=== PATIENT | female | born 1975 | race Caucasian/White ===

== ENCOUNTER 2022-05-25 13:51 | Outpatient (CLI) | payer OTHER, SELFPAY ==
[2022-05-25 14:26] LABS: Albumin* 4.1 g/dL (3.3-5.0)
[2022-05-25 14:27] LABS: Chloride* 105 mmol/L (96-114); Potassium* 4.3 mmol/L (3.6-5.1); Sodium* 137 mmol/L (135-149)
[2022-05-25 14:29] LABS: Aspartate Amino Transferase* 20 U/L (12-35); Bilirubin Total* 0.6 mg/dL (0.1-1.5); Blood Urea Nitrogen* 19 mg/dL (5-24); Carbon Dioxide* 24 mmol/L (20-32); Cholesterol* 197 mg/dL (90-199); Creatinine* 0.7 mg/dL (0.5-1.5); Estimated Glomerular Filt Rate 109 ml/min; Total Protein* 6.6 g/dL (6.0-8.3)
[2022-05-25 14:30] LABS: Alanine Aminotransferase* 29 U/L (4-35); Alkaline Phosphatase* 84 U/L (40-150); Calcium* 9.3 mg/dL (8.4-10.6); Glucose* 137 mg/dL (60-115); HDL Cholesterol* 59 mg/dL (>=50); LDL Cholesterol Calculated 113 mg/dL (<100); Triglycerides* 125 mg/dL (40-149)
[2022-05-25 14:59] LABS: Free T4 Free Thyroxine* 1.32 ng/dL (0.70-1.85)
[2022-05-25 22:01] LABS: Creatinine Urine 172.6 mg/dL
[2022-05-25 22:04] LABS: Microalbumin Creatinine Ratio 0 mg/g (0-30); Microalbumin Urine 1 mg/dL
== END 2022-05-25 13:52 | disposition home or self-care (01) ==
PROVIDERS: PCP Family Medicine; Visit Provider Family Medicine
DX: E11.9 Type 2 diabetes mellitus without complications (principal); E03.9 Hypothyroidism, unspecified; I10 Essential (primary) hypertension; E66.9 Obesity, unspecified; E78.5 Hyperlipidemia, unspecified
CPT/HCPCS: 80053; 80061; 82043; 82570; 84439; 84443

== ENCOUNTER 2022-11-22 08:09 | Outpatient (CLI) | payer OTHER, SELFPAY | END 2022-11-22 08:10 | disposition home or self-care (01) | LOC: NFLDREF 11-23 07:07 | PROVIDERS: PCP Family Medicine; Referring Provider Family Medicine; Visit Provider Family Medicine | DX: E03.9 Hypothyroidism, unspecified (principal); E11.69 Type 2 diabetes mellitus with other specified complication; E66.9 Obesity, unspecified; E78.5 Hyperlipidemia, unspecified; I10 Essential (primary) hypertension | CPT/HCPCS: 80053; 80061; 82043; 82570; 84443 ==

== ENCOUNTER 2022-12-08 09:50 | Outpatient (CLI) | payer OTHER, SELFPAY ==
[2022-12-08 15:11] LABS: Chlamydia DNA Amplified* NOT DETECTED (No Detected); GC DNA Amplified* NOT DETECTED (No Detected)
== END 2022-12-08 09:51 | disposition home or self-care (01) ==
PROVIDERS: PCP Family Medicine; Visit Provider Registered Nurse
DX: N92.0 Excessive and frequent menstruation with regular cycle (principal); Z11.3 Encounter for screening for infections with a predominantly sexual mode of transmission
CPT/HCPCS: 87086; 87491; 87591

== ENCOUNTER 2023-01-06 12:51 | Outpatient (CLI) | payer OTHER, SELFPAY ==
--- NOTE | 2023-01-06 13:00 | CRLHL7_ITS ---
For Patients: As a result of the Century Cures Act, medical imaging exams and procedure reports are released immediately into your electronic medical record. You may view this report before your referring provider. If you have questions, please contact your health care provider. INDICATION: EXCESSIVE AND FREQUENT MENSTRUATION COMPARISON: none TECHNIQUE: 2D fong scale and color Doppler images were acquired of the pelvis using a transabdominal and transvaginal approach. FINDINGS: Sonographic images demonstrate a normal size and smooth outer contour of the uterus. Uterus measures 9.2 cm in length by 4.4 cm in AP diameter by 5.0 cm in transverse dimension. The myometrium has a normal uniform echotexture. The endometrial lining measures 13 mm in composite thickness. The ovaries are not visualized. There are no suspicious fluid collections within the cul-de-sac. IMPRESSION: Endometrial thickness 13 millimeters. No uterine fibroid. Dictated by Cesar Christine MD @ 01/06/2023 3:31:19 PM (Electronically Signed)
== END 2023-01-06 12:52 | disposition home or self-care (01) ==
LOC: US 12:53
PROVIDERS: PCP Family Medicine; Visit Provider Registered Nurse
DX: N92.0 Excessive and frequent menstruation with regular cycle (principal); R93.89 Abnormal findings on diagnostic imaging of other specified body structures
CPT/HCPCS: 76830; 76856

== ENCOUNTER 2023-05-09 08:23 | Outpatient (CLI) | payer OTHER, SELFPAY | END 2023-05-09 08:24 | disposition home or self-care (01) | LOC: NFLDREF 14:58 | PROVIDERS: PCP Family Medicine; Referring Provider Family Medicine; Visit Provider Family Medicine | DX: E03.9 Hypothyroidism, unspecified (principal); I10 Essential (primary) hypertension; E78.5 Hyperlipidemia, unspecified; E11.69 Type 2 diabetes mellitus with other specified complication; E66.9 Obesity, unspecified; Z79.899 Other long term (current) drug therapy | CPT/HCPCS: 80053; 80061; 82043; 82570; 82607; 84439; 84443 ==

== ENCOUNTER 2023-07-07 07:51 | Outpatient (CLI) | payer OTHER, SELFPAY ==
--- NOTE | 2023-07-07 08:48 | W.ANESCHARGE ---
Anesthesia Charges Start Date/Time Anesthesia Start Date: 07/07/23 Anesthesia Start Time: 08:28 Stop Date/Time Anesthesia Stop Date: 07/07/23 Anesthesia Stop Time: 08:55
--- NOTE | 2023-07-07 08:57 | W.ANESCHARGE ---
Anesthesia Charges Start Date/Time Anesthesia Start Date: 07/07/23 Anesthesia Start Time: 08:28 Stop Date/Time Anesthesia Stop Date: 07/07/23 Anesthesia Stop Time: 08:55
== END 2023-07-07 07:52 | disposition home or self-care (01) ==
LOC: OP CLINIC 07:52
PROVIDERS: PCP Family Medicine; Visit Provider Internal Medicine
DX: Z12.11 Encounter for screening for malignant neoplasm of colon (principal); K63.5 Polyp of colon
CPT/HCPCS: 00811; 00812; 45380; 88305; J2704

== ENCOUNTER 2023-08-03 14:57 | Outpatient (CLI) | payer OTHER, SELFPAY ==
--- NOTE | 2023-08-03 15:00 | MM_ITS ---
Patient: CARLY ROJO Facility:?[facility] Patient ID:?[id number] Site [id number] ID:?[id number]. Site :?[id number] Study:?XRay-Breast Bilateral 3D W/CAD-08/03/2023 4:25:14 PM Ordering Physician:Kavita Final Report: BILATERAL SCREENING MAMMOGRAM WITH COMPUTER-AIDED DETECTION AND TOMOSYNTHESIS TECHNIQUE: CC and MLO views were obtained. These mammographic images have been obtained using full-field digital technique. These mammographic images were interpreted with the benefit of computer-aided detection. Breast Tomosynthesis was used in this interpretation. COMPARISON FILM: 09/01/21, 01/29/20, 09/29/17. FINDINGS: There are scattered areas of fibroglandular density. IMPRESSION: There is no radiographic evidence for malignancy. ASSESSMENT: BI-RADS Category 2: Benign RECOMMENDATION: Routine screening mammogram in 1 year. A lay language report of this examination will be provided to the patient. Cesar Christine M.D. Diagnostic Radiologist [email or web address] DSM/sp R& Transcribed: 2:49 p.m. SP/Dictated by: Cesar Christine MD @ 08/04/2023 12:36:00 PM Signed by:?Cesar Christine MD @08/04/2023 3:03:59 PM (Electronic Signature)
== END 2023-08-03 14:58 | disposition home or self-care (01) ==
LOC: MAMMO 14:58
PROVIDERS: PCP Family Medicine; Visit Provider Family Medicine
DX: Z12.31 Encounter for screening mammogram for malignant neoplasm of breast (principal)
CPT/HCPCS: 77063; 77067

== ENCOUNTER 2023-10-10 07:54 | Outpatient (CLI) | payer OTHER, SELFPAY | END 2023-10-10 07:55 | disposition home or self-care (01) | LOC: NFLDREF 10-11 06:31 | PROVIDERS: PCP Family Medicine; Referring Provider Family Medicine; Visit Provider Family Medicine | DX: E78.5 Hyperlipidemia, unspecified (principal); E11.69 Type 2 diabetes mellitus with other specified complication; E66.9 Obesity, unspecified; I10 Essential (primary) hypertension | CPT/HCPCS: 80053; 80061 ==

== ENCOUNTER 2024-06-03 07:56 | Outpatient (CLI) | payer OTHER, SELFPAY | END 2024-06-03 07:57 | disposition home or self-care (01) | LOC: NFLDREF 16:50 | PROVIDERS: PCP Family Medicine; Referring Provider Family Medicine; Visit Provider Family Medicine | DX: E78.5 Hyperlipidemia, unspecified (principal); I10 Essential (primary) hypertension; E03.9 Hypothyroidism, unspecified; E11.69 Type 2 diabetes mellitus with other specified complication; E66.9 Obesity, unspecified; Z79.1 Long term (current) use of non-steroidal anti-inflammatories (NSAID) | CPT/HCPCS: 80053; 80061; 82043; 82570; 84439; 84443 ==

== ENCOUNTER 2024-12-03 07:57 | Outpatient (CLI) | payer OTHER, SELFPAY | END 2024-12-03 07:58 | disposition home or self-care (01) | LOC: NFLDREF 12-05 17:31 | PROVIDERS: PCP Family Medicine; Referring Provider Family Medicine; Visit Provider Family Medicine | DX: I10 Essential (primary) hypertension (principal); D64.9 Anemia, unspecified; E03.9 Hypothyroidism, unspecified; E11.69 Type 2 diabetes mellitus with other specified complication; E66.9 Obesity, unspecified; Z79.899 Other long term (current) drug therapy | CPT/HCPCS: 80053; 82607; 82728; 84443 ==